=== PATIENT | female | born 1935 | race Caucasian/White ===

== ENCOUNTER 2017-02-12 15:09 | Emergency (ER) | payer OTHER ==
[2017-02-12 15:18] VITALS: BP 161/94; TEMP 98.4; BMI 26.5
--- NOTE | 2017-02-12 15:53 | ED.PDOC ---
General ED Provider: Dr. OMAR GARCIA Chief Complaint: Hand Pain/Injury Stated Complaint: LEFT HAND RASH Time Seen by Physician: 15:51 (RASH ONSET X1 DAY) Mode of Arrival: Walk-In Information Source: Patient Exam Limitations: No limitations Primary Care Provider: PANCHITO NAVARRETE Nursing and Triage Documentation Reviewed and Agree: Yes (NEGATIVE TRAUMA ) Musculoskeletal Complaint Exam - Hand/Wrist Complaint/Exam Location of Pain: Reports: Left, Hand. Denies: Wrist Mechanism of Injury: Denies: Trauma Review of Systems - Review Of Systems Constitutional: Reports: No symptoms Eyes: Reports: No symptoms Ears, Nose, Mouth, Throat: Reports: No symptoms Respiratory: Reports: No symptoms Cardiac: Reports: No symptoms GI: Reports: No symptoms : Reports: No symptoms Musculoskeletal: Reports: No symptoms Skin: Reports: Rash (ON DORSAL LEFT HAND SEE PHOTOS) Neurological: Reports: No symptoms Endocrine: Reports: No symptoms Hematologic/Lymphatic: Reports: No symptoms All Other Systems: Reviewed and Negative Past Medical History - Past Medical History Previously Healthy: No Endocrine: Reports: Dyslipidemia Cardiovascular: Reports: None Respiratory: Reports: None Hematological: Reports: None Gastrointestinal: Reports: None Genitourinary: Reports: None Neuro/Psych: Reports: None Musculoskeletal: Reports: None Cancer: Reports: None Last Menstrual Period: N/A - Surgical History General Surgical History: Reports: None - Family History Family History: Reports: None - Social History Smoking Status: Never smoker Hx Substance Use: No Alcohol Screening: None - Immunizations Tetanus Shot up to Date: No Physical Exam - Physical Exam Appearance: Well-appearing, No pain distress, Well-nourished Eyes: LAILA, EOMI, Conjunctiva clear ENT: Ears normal, Nose normal, Oropharynx normal Respiratory: Airway patent, Breath sounds clear, Breath sounds equal, Respirations nonlabored Cardiovascular: RRR, Pulses normal, No rub, No murmur GI/: Soft, Nontender, No masses, Bowel sounds normal, No Organomegaly Musculoskeletal: Normal strength, ROM intact, No edema, No calf tenderness Skin: Warm, Dry (RASH 14CM MACULAR RED SEE PHOTO LEFT HAND) Neurological: Sensation intact, Motor intact, Reflexes intact, Cranial nerves intact, Alert, Oriented Psychiatric: Affect appropriate, Mood appropriate Critical Care Note - Critical Care Note Total Time (mins): 0 Course - Course Vital Signs: Temp Pulse Resp BP Pulse Ox 05/19/17 15:10 98.4 F 75 20 161/94 H 96 Departure - Departure Time of Disposition: 15:55 (SEE PHOTOS ) Disposition: HOME SELF-CARE Discharge Problem: Cellulitis of left hand Instructions: Cellulitis (ED) Condition: Good Pt referred to PMD for follow-up: No Additional Instructions: Please call your Family Physician as soon as possible to schedule a follow-up appointment. Allergies/Adverse Reactions: Allergies No Known Allergies Allergy (Unverified 02/12/17 15:21) Home Medications: Ambulatory Orders Aspirin [Ecotrin] 81 mg PO DAILY 02/12/17 Lovastatin [Mevacor] 1 tab PO DAILY 02/12/17 Multivits-Min/Iron/FA/Lutein [Centrum Silver Women Tablet] 1 tab PO DAILY
[2017-02-12] MEDS ORDERED: LIDOCAINE 1 % AMP 5 ML (SUTURES) IM STA (15:55)
[2017-02-12] MEDS ORDERED: ROCEPHIN IM STA (15:55)
== END 2017-02-12 16:19 | disposition home or self-care (01) ==
LOC: ED 15:09
DX: L03.114 Cellulitis of left upper limb (principal)
CPT/HCPCS: 96372; 99282

== ENCOUNTER 2017-06-10 09:30 | Outpatient (CLI) ==
--- NOTE | 2017-06-10 11:10 | CT ---
EXAM: CT of the chest without contrast History: Follow-up pulmonary nodules. Comparison: The 06/05/2016 Technique: Multiplanar CT images through the thorax were obtained without the administration of IV c ontrast Findings: Heart size is within normal limits. No pericardial effusion. Great vessels are unremarkab le. Previous left mastectomy. No pathologically enlarged thoracic lymph nodes. No change in the ti ny pulmonary micronodules. No developing lung nodules. No consolidation. No pleural fluid and no p neumothorax. Hiatal hernia again noted. Right renal cyst again seen. There is mild gallbladder distension. No a cute osseous abnormalities. Impression: 1. Stable tiny pulmonary micronodules. No developing pulmonary nodules. Recommend follow-up chest CT in 6 months to document stability. 2. Hiatal hernia. 3. Mild gallbladder distension.
== END 2017-06-10 09:31 | disposition home or self-care (01) ==
LOC: RAD 09:30
PROVIDERS: ATTEND Family Medicine
DX: R91.1 Solitary pulmonary nodule (principal)

== ENCOUNTER 2017-12-08 09:04 | Outpatient (CLI) ==
--- NOTE | 2017-12-08 11:10 | CT ---
Exam: CT of the chest without contrast History: Pulmonary nodules Technique: [address] of the chest without intravascular contrast FINDINGS: Compared with 06/10/2017, 06/05/2016 and 03/11/2016. Granulomatous nodules noted bilatera lly. Noncalcified left upper lobe 4 mm nodule is stable. No suspicious nodules, masses or infiltrat es. There is no pleural fluid. Small hiatus hernia. No pathologic lymph node enlargement or abunda nce. Atherosclerotic calcification of the aorta without aneurysm. Left mastectomy changes. No ches t wall lymphadenopathy. No suspicious bony lesions are seen. No acute findings of the upper abdomen . Impression: 1. Bilateral granulomatous calcifications and tiny sub 4 mm nodules stable from distant prior dated 03/11/2016. No suspicious nodules or lymphadenopathy is seen.
== END 2017-12-08 09:05 | disposition home or self-care (01) ==
LOC: RAD 09:04
PROVIDERS: ATTEND Family Medicine
DX: R91.8 Other nonspecific abnormal finding of lung field (principal)

== ENCOUNTER 2018-04-01 14:41 | Outpatient (CLI) | payer OTHER ==
--- NOTE | 2018-04-01 15:22 | DI ---
EXAM: Two views of the right clavicle. History: Right clavicle deformity. Findings: Osteopenia. Atherosclerotic vascular calcifications. No acute fracture or dislocation. High-riding humeral head. Impression: 1. No acute osseous abnormality. 2. High-riding humeral head compatible with chronic full-thickness rotator cuff tear. 3. Osteopenia.
--- NOTE | 2018-04-01 15:22 | DI ---
EXAM: Left clavicle two view HISTORY: Clavicle deformity COMPARISON: None FINDINGS?IMPRESSION: No fracture. 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 Sli ghtly asymmetric elevation of the left clavicle with respect to the right, possibly positional. Find ings can be correlate with radiographs of the chest
== END 2018-04-01 14:42 | disposition home or self-care (01) ==
LOC: RAD 14:41
PROVIDERS: ATTEND Family Medicine
DX: M95.8 Other specified acquired deformities of musculoskeletal system (principal)